=== PATIENT | female | born 1960 | race African-American/Black ===

== ENCOUNTER 2018-04-11 05:48 | Inpatient (IN) ==
[2018-04-11 20:32] VITALS: RESP 18
[2018-04-13 09:16] VITALS: BP 126/72; PULSE 93; TEMP 99.7; O2SAT 93
== END 2018-04-13 17:19 | disposition home or self-care (01) ==
LOC: HSDI 05:48 → H1EA 15:03
PROVIDERS: ADMIT Obstetrics & Gynecology; ATTEND Obstetrics & Gynecology